=== PATIENT | male | born 1945 | race Caucasian/White ===

== ENCOUNTER 2018-10-06 08:00 | Inpatient (IN) | payer MEDICARE, BC ==
[2018-10-06] MEDS ORDERED: ISOVUE-370 76%-LOCM 1 ML ONE (11:34)
[2018-10-06] MEDS ORDERED: Ondansetron PF 4 MG/2 ML Vial IVP PRN (12:54)
[2018-10-06] MEDS ORDERED: Acetaminophen 650 MG Suppository PR PRN (12:54)
[2018-10-06] MEDS: Piperacillin/Tazobactam 3.375 GM in Sodium Chloride 0.9% 100 ML IVPB SCH ×2 (15:04→23:06)
[2018-10-06] MEDS: Sodium Chloride 0.9% 1,000 ML IV SCH (15:10)
--- NOTE | 2018-10-06 15:51 | CT ---
CT CHEST, ABDOMEN AND PELVIS WITH CONTRAST: 10/06/18 Multiple axial tomograms obtained through the chest, abdomen and pelvis with IV enhancement. INDICATIONS: Sepsis. Correlation to recent CT abdomen and pelvis 09/18/18. CT CHEST: There are chronic lung parenchymal changes with hyperexpansion and early emphysematous change. Hazy g round glass opacities in the posterior lower lobes, more prominent in the right lower lobe is seen. Mild inflammatory infiltrate cannot be excluded. There is no evidence of confluent consolidation. Tho racic aorta shows atherosclerotic change. The pulmonary arteries are opacified and there is no eviden ce of proximal pulmonary embolus. IMPRESSION: Chronic lung changes. Ground glass opacities, more prominent in the posterior right lung base. The fi ndings may represent infectious alveolitis. No confluent consolidation. CT ABDOMEN AND PELVIS: Liver, spleen and pancreas unremarkable. Adrenal glands unremarkable. Kidneys show right renal cystic lesions which are stable from a recent exam. No hydronephrosis. Urina ry bladder is contacted and Mcwilliams catheter in place. Small bowel loops unremarkable. Prominent stool throughout the colon with diverticulosis of the left kidney and sigmoid. No CT evidence of diverticu litis. Aorta shows atherosclerotic calcifications but normal caliber. No mass or adenopathy. No free fluid. IMPRESSION: No acute process identified. POS: OFF
--- NOTE | 2018-10-06 21:26 | HP ---
CHIEF COMPLAINT: Generalized weakness. HISTORY OF PRESENT ILLNESS: The patient is a 73-year-old male, who was sent to the emergency room by EMS by his caregiver/nurse, who came over to see him and he was very weak and not able to do his routine. While in the emergency room in [place], he was found to be septic with tachycardia, fever, and he received two doses of Zosyn and a 5 L of IV fluids and 800 mg of ibuprofen and was sent out to [facility] in [place], where he is getting admitted for further diagnostic workup and management of his condition. PAST MEDICAL HISTORY: Positive for, 1. Parkinson disease. 2. Hyperlipidemia. 3. History of hypokalemia. PAST SURGICAL HISTORY: 1. Hernia repair. 2. Vasectomy. SOCIAL HISTORY: He denied any alcohol intake, cigarette smoking, or illicit drug use. FAMILY HISTORY: Positive for cardiovascular disease. ALLERGIES: NONE. MEDICATIONS: 1. Effexor XR 150 mg once a day. 2. Adderall 20 mg once a day. 3. Verapamil 180 mg once a day. 4. Atorvastatin 40 mg once a day. 5. Tamsulosin 0.4 mg twice a day. 6. Potassium chloride 10 mEq two tablets twice a day. 7. Carbidopa levodopa 50/200 mg one every 8 hours and 25/250 one tablet 3 times a day. 8. Risperidone 4 mg at bedtime. 9. Desmopressin 0.2 mg 3 tablets once a day. 10. Finasteride 5 mg once a day. 11. Melatonin 5 mg 2 tablets at bedtime. 12. MiraLAX 17 g twice a day. 13. Divalproex 250 mg one tablet twice a day. CODE STATUS: The patient is full code. PRIMARY CARE PHYSICIAN: Jeremy Ren MD REVIEW OF SYSTEMS: Unobtainable secondary to the patient's very slow response and very poor communication with us. PHYSICAL EXAMINATION: VITAL SIGNS: Blood pressure is 154/73, pulse is 88, temperature is 98.5, respirations 20, and O2 saturation is 97% on 2 L by nasal cannula. HEENT: His head is atraumatic and normocephalic. He tries to follow my commands, but he falls short very often. His pupils are responding to light properly. Sclerae, nonicteric. Conjunctivae are red. Oral mucosa is somewhat dry. NECK: Supple. LUNGS: Clear. HEART: S1 and S2, normal. No S3. No S4. ABDOMEN: Soft, nontender, and nondistended. EXTREMITIES: No clubbing, cyanosis, or edema. NEUROLOGICAL: He is trying to follow my commands, but he falls short very often. His speech is very slow and sporadic. His upper and lower extremities with significant increase of muscle spasm. SKIN: He has stage II decubitus on his sacrum. LABORATORY DATA: White count is 18.0, hemoglobin 15.0, hematocrit 45.0, platelet count is 249,000, and neutrophils 91%. Chemistry; sodium of 140, potassium 4.1, chloride 105, CO2 of 21, BUN 16, creatinine 0.79, GFR greater than 90, glucose 134. Lactic acid 3.3 and repeated is 2.7. The rest of chemistry within normal limits. Troponin I less than 0.010. BNP 13.4. Chest x-ray did not reveal any acute infiltrates. Electrocardiogram showed sinus tachycardia with ventricular rate of 128 beats per minute with nonspecific ST-T wave abnormalities. IMPRESSION: 1. Most likely sepsis with elevated white count, tachycardia, and fever of unclear etiology at this point. His urine is clear. Chest x-ray does not show any infiltrates. 2. Parkinsonism. 3. Hyperlipidemia. 4. Hematuria per the documentation from [place] [facility]. PLAN: Full admission. Condition is guarded. IV 75 mL of normal saline per hour. Diet modified by speech pathology. He was evaluated this morning and we are going to follow the recommendation with pureed food and I believe thickened liquids. Continue Zosyn 3.375 g every 6 hours IV piggyback. He will have CT of the chest, abdomen, and pelvis with and without contrast. Reconcile his home medications. We will follow up on his cultures, urine, and blood from [place] [facility] for the fever. DVT prophylaxis with SCDs and Lovenox. Job ID: [id number]
[2018-10-06] MEDS: Divalproex Sodium 125 mg Sprinkle Capsule PO SCH (21:44)
[2018-10-06] MEDS: Tamsulosin HCl 0.4 MG CAP PO SCH (21:44)
[2018-10-06] MEDS: Melatonin 3 MG TAB PO SCH (21:44)
[2018-10-06] MEDS: Carbidopa/Levodopa CR 50-200 mg Tablet PO SCH (21:44)
[2018-10-06] MEDS: Carbidopa/Levodopa 25-250 mg Tablet PO SCH (21:45)
[2018-10-06] MEDS: Desmopressin 0.2 mg Tablet PO SCH (21:45)
[2018-10-06] MEDS: Finasteride 5 MG TAB PO SCH (21:47)
[2018-10-06] MEDS: risperiDONE 1 MG TAB PO SCH (21:47)
[2018-10-07] MEDS: Piperacillin/Tazobactam 3.375 GM in Sodium Chloride 0.9% 100 ML IVPB SCH ×3 (05:07→16:20)
[2018-10-07] MEDS: Sodium Chloride 0.9% 1,000 ML IV SCH (05:08)
[2018-10-07 06:39] LABS: #Eosinphils 0.1 thou/uL (0.0-0.7); #Lymphocytes 1.7 thou/uL (1.20-3.40); #Monocytes 0.5 thou/uL (0.11-0.59); #Neutrophils 6.8 thou/uL (1.40-6.50); %Basophils 0.2 % (0.0-1.0); %Lymphocytes 18.1 % (21.0-51.0); %Monocytes 5.6 % (0.0-10.0); %Neutrophils 75.1 % (42.0-75.0); Hemoglobin 12.6 g/dL (14.0-18.0); Mean Corpuscular HGB CONC 33.7 g/dL (32.0-36.0); Mean Corpuscular Hemoglobin 32.2 pg (27.0-31.0); Mean Corpuscular Volume 95.4 fL (78.0-98.0); Mean Platelet Volume 7.4 fL (7.4-10.4); Platelet Count 235 thou/uL (130-400); RBC Distribution Width 11.9 % (11.5-14.5); Red Blood Cell (RBC) Count 3.93 mill/uL (4.70-6.10); White Blood Cell (WBC) Count 9.1 thou/uL (4.8-10.8)
[2018-10-07 07:06] LABS: ALT (SGPT) Less than 7 U/L (8-55); AST (SGOT) 10 U/L (5-34); Albumin 3.5 g/dL (3.4-4.8); Alkaline Phosphatase 94 U/L (40-150); Anion Gap 13 mmol/L (10-20); BUN (Urea Nitrogen) 7 mg/dL (8.4-25.7); Bilirubin, Total 0.7 mg/dL (0.2-1.2); Calc. Creatinine Clearance 117 mL/min (70-130); Calcium 8.9 mg/dL (7.8-10.44); Carbon Dioxide 24 mmol/L (23-31); Chloride 105 mmol/L (98-107); Estimated GFR-MDRD Greater than 90; Globulin 2.6 g/dL (2.4-3.5); Glucose 87 mg/dL (83-110); Potassium 3.1 mmol/L (3.5-5.1); Protein, Total 6.1 g/dL (5.8-8.1); Sodium 139 mmol/L (136-145)
[2018-10-07] MEDS: Divalproex Sodium 125 mg Sprinkle Capsule PO SCH ×2 (08:25→20:37)
[2018-10-07] MEDS: Tamsulosin HCl 0.4 MG CAP PO SCH ×2 (08:26→20:37)
[2018-10-07] MEDS: Carbidopa/Levodopa 25-250 mg Tablet PO SCH ×3 (08:26→20:39)
[2018-10-07] MEDS: Carbidopa/Levodopa CR 50-200 mg Tablet PO SCH ×3 (08:27→20:38)
[2018-10-07] MEDS: Enoxaparin Sodium 40 MG/0.4 ML SYRINGE SC SCH (08:34)
[2018-10-07] MEDS ORDERED: Potassium Chloride 20 MEQ TAB PO SCH (14:45)
--- NOTE | 2018-10-07 17:04 | PDOC.PN ---
- Subjective Encounter Start Date: 10/07/18 Encounter Start Time: 14:20 Mr. Coulter was seen today in follow-up of sepsis- likely from aspiration. He has advanced Parkinson's disease and is unable to express his concerns. He was noted to cough after each bite of food. - Objective Resuscitation Status - Order Detail: 10/06/18 12:54 Resuscitation Status Routine Resuscitation Status: FULL: Full Resuscitation MAR Reviewed: Yes Vital Signs & Weight: Vital Signs (12 hours) Temp Pulse Resp BP Pulse Ox 10/07/18 16:00 97.8 F 99 18 168/81 H 95 10/07/18 11:04 98.5 F 88 16 139/78 95 10/07/18 07:58 98.8 F 97 22 H 138/75 100 Weight Weight 169 lb 12.095 oz I&O: 10/06/18 10/07/18 10/08/18 06:59 06:59 06:59 Intake Total 2400 Output Total 4600 550 Balance -2200 -550 Result Diagrams: 10/07/18 05:54 10/07/18 05:54 Phys Exam - Physical Examination HEENT: PERRLA + rhonchi bilaterally , and some rales at the bases Cardiovascular: RRR, no significant murmur, no rub Gastrointestinal: soft, non-tender, no distention, positive bowel sounds Musculoskeletal: no edema, pulses present Dx/Plan (1) Sepsis Code(s): A41.9 - SEPSIS, UNSPECIFIED ORGANISM Status: Acute (2) Aspiration pneumonia Code(s): J69.0 - PNEUMONITIS DUE TO INHALATION OF FOOD AND VOMIT Status: Acute (3) Parkinsons disease Code(s): G20 - PARKINSON'S DISEASE Status: Chronic - Plan * Sepsis- likely due to aspiration pneumonia ( CT scan results noted). He is currently on a diet with risks. * Continue Zosyn * Parkinson's disease- his condition is advanced and he is at constant risk of aspiration. He is Full Code * Will discuss with the patient's
[2018-10-07] MEDS ORDERED: Polyethylene Glycol 3350 17 GM Packet PO SCH (17:15)
--- NOTE | 2018-10-07 18:28 | PDOC.EVN ---
Event Note - Event Note Event Note: Discussed the patient's condition regarding to his poor swallow with his Zenobia. He was noted to cough after each bite, and his swallow was very delayed. We briefly discussed Pleasure feeds versus, PEG tube placement. We discussed the natural progression of Parkinson's disease, and that this will be a progressive problem with dysphagia going forward. We also discussed code status as well She is currently on vacation, and says this was a lot of information to deal with right now. She would like to give this more thought. In the meantime he will remain a FULL CODE. She is interested in him going to a Swing Bed in [facility]. ACP 30 minutes
[2018-10-07] MEDS: Melatonin 3 MG TAB PO SCH (20:35)
[2018-10-07] MEDS: Finasteride 5 MG TAB PO SCH (20:35)
[2018-10-07] MEDS: risperiDONE 1 MG TAB PO SCH (20:38)
[2018-10-07] MEDS: Desmopressin 0.2 mg Tablet PO SCH (20:39)
[2018-10-08] MEDS: Piperacillin/Tazobactam 3.375 GM in Sodium Chloride 0.9% 100 ML IVPB SCH ×5 (00:04→23:41)
[2018-10-08 05:39] LABS: #Eosinphils 0.1 thou/uL (0.0-0.7); #Lymphocytes 1.2 thou/uL (1.20-3.40); #Monocytes 0.6 thou/uL (0.11-0.59); #Neutrophils 8.3 thou/uL (1.40-6.50); %Basophils 0.4 % (0.0-1.0); %Eosinophils 0.9 % (0.0-10.0); %Lymphocytes 11.3 % (21.0-51.0); %Monocytes 6.2 % (0.0-10.0); %Neutrophils 81.2 % (42.0-75.0); Hemoglobin 14.5 g/dL (14.0-18.0); Mean Corpuscular HGB CONC 33.6 g/dL (32.0-36.0); Mean Corpuscular Hemoglobin 32.5 pg (27.0-31.0); Mean Corpuscular Volume 96.8 fL (78.0-98.0); Mean Platelet Volume 7.2 fL (7.4-10.4); Platelet Count 249 thou/uL (130-400); RBC Distribution Width 11.9 % (11.5-14.5); Red Blood Cell (RBC) Count 4.46 mill/uL (4.70-6.10); White Blood Cell (WBC) Count 10.2 thou/uL (4.8-10.8)
[2018-10-08 05:56] LABS: ALT (SGPT) Less than 7 U/L (8-55); AST (SGOT) 11 U/L (5-34); Alkaline Phosphatase 106 U/L (40-150); Anion Gap 15 mmol/L (10-20); BUN (Urea Nitrogen) 7 mg/dL (8.4-25.7); Bilirubin, Total 0.8 mg/dL (0.2-1.2); Calc. Creatinine Clearance 107 mL/min (70-130); Calcium 9.6 mg/dL (7.8-10.44); Carbon Dioxide 22 mmol/L (23-31); Chloride 104 mmol/L (98-107); Estimated GFR-MDRD Greater than 90; Globulin 3.1 g/dL (2.4-3.5); Glucose 98 mg/dL (83-110); Potassium 3.5 mmol/L (3.5-5.1); Protein, Total 7.1 g/dL (5.8-8.1); Sodium 137 mmol/L (136-145)
[2018-10-08] MEDS: Tamsulosin HCl 0.4 MG CAP PO SCH ×2 (08:41→20:02)
[2018-10-08] MEDS: Divalproex Sodium 125 mg Sprinkle Capsule PO SCH ×2 (08:42→20:13)
[2018-10-08] MEDS: Carbidopa/Levodopa CR 50-200 mg Tablet PO SCH ×3 (08:43→20:02)
[2018-10-08] MEDS: Enoxaparin Sodium 40 MG/0.4 ML SYRINGE SC SCH (08:45)
[2018-10-08] MEDS: Polyethylene Glycol 3350 17 GM Packet PO SCH ×2 (08:46→09:02)
[2018-10-08] MEDS: Carbidopa/Levodopa 25-250 mg Tablet PO SCH ×3 (08:47→20:03)
--- NOTE | 2018-10-08 15:42 | PDOC.PN ---
- Subjective Encounter Start Date: 10/08/18 Encounter Start Time: 15:38 Mr. Coulter was seen today in follow-up of aspiration pneumonia with sepsis. He does not have any new complaints. - Objective Resuscitation Status - Order Detail: 10/06/18 12:54 Resuscitation Status Routine Resuscitation Status: FULL: Full Resuscitation MAR Reviewed: Yes Vital Signs & Weight: Vital Signs (12 hours) Temp Pulse Resp BP Pulse Ox 10/08/18 11:39 98.2 F 88 16 111/71 94 L 10/08/18 08:00 92 L 10/08/18 07:30 98.3 F 94 16 122/70 92 L Weight Weight 169 lb 12.095 oz I&O: 10/07/18 10/08/18 10/09/18 06:59 06:59 06:59 Intake Total 2400 450 Output Total 4600 550 Balance -2200 -100 Result Diagrams: 10/08/18 05:22 10/08/18 05:22 Phys Exam - Physical Examination HEENT: PERRLA + rhonchi and wheezing no rales Cardiovascular: RRR, no significant murmur, no rub Gastrointestinal: soft, non-tender, no distention, positive bowel sounds Musculoskeletal: no edema Neurological: non-focal Dx/Plan (1) Sepsis Code(s): A41.9 - SEPSIS, UNSPECIFIED ORGANISM Status: Acute (2) Aspiration pneumonia Code(s): J69.0 - PNEUMONITIS DUE TO INHALATION OF FOOD AND VOMIT Status: Acute (3) Parkinsons disease Code(s): G20 - PARKINSON'S DISEASE Status: Chronic - Plan * Aspiration pneumonia with sepsis- improving- he is still on a diet with risks. He continues to cough after each few bites * He is at high risk for aspiration * Continue Zosyn * Advanced Parkinson's disease.
[2018-10-08] MEDS: Finasteride 5 MG TAB PO SCH (20:02)
[2018-10-08] MEDS: Melatonin 3 MG TAB PO SCH (20:02)
[2018-10-08] MEDS: Desmopressin 0.2 mg Tablet PO SCH (20:03)
[2018-10-08] MEDS: risperiDONE 1 MG TAB PO SCH (20:04)
[2018-10-09 05:21] LABS: #Lymphocytes 1.1 thou/uL (1.20-3.40); #Monocytes 0.5 thou/uL (0.11-0.59); #Neutrophils 6.8 thou/uL (1.40-6.50); %Basophils 0.2 % (0.0-1.0); %Eosinophils 0.3 % (0.0-10.0); %Monocytes 6.3 % (0.0-10.0); %Neutrophils 80.1 % (42.0-75.0); Hemoglobin 13.8 g/dL (14.0-18.0); Mean Corpuscular HGB CONC 33.2 g/dL (32.0-36.0); Mean Corpuscular Hemoglobin 31.9 pg (27.0-31.0); Mean Corpuscular Volume 96.1 fL (78.0-98.0); Mean Platelet Volume 7.6 fL (7.4-10.4); Platelet Count 273 thou/uL (130-400); RBC Distribution Width 11.8 % (11.5-14.5); Red Blood Cell (RBC) Count 4.31 mill/uL (4.70-6.10); White Blood Cell (WBC) Count 8.5 thou/uL (4.8-10.8)
[2018-10-09] MEDS: Piperacillin/Tazobactam 3.375 GM in Sodium Chloride 0.9% 100 ML IVPB SCH ×4 (05:25→23:40)
[2018-10-09] MEDS: Carbidopa/Levodopa CR 50-200 mg Tablet PO SCH ×3 (10:07→20:11)
[2018-10-09] MEDS: Tamsulosin HCl 0.4 MG CAP PO SCH ×2 (10:07→20:11)
[2018-10-09] MEDS: Enoxaparin Sodium 40 MG/0.4 ML SYRINGE SC SCH (10:07)
[2018-10-09] MEDS: Divalproex Sodium 125 mg Sprinkle Capsule PO SCH ×2 (10:07→20:25)
[2018-10-09] MEDS: Carbidopa/Levodopa 25-250 mg Tablet PO SCH ×3 (10:07→20:09)
[2018-10-09] MEDS: Polyethylene Glycol 3350 17 GM Packet PO SCH (10:08)
--- NOTE | 2018-10-09 14:08 | PDOC.PN ---
- Subjective Encounter Start Date: 10/09/18 Encounter Start Time: 14:06 Mr. Coulter was seen today in follow-up of aspiration pneumonia. He was seen ambulating in the halls. No problems voiced by staff. - Objective Resuscitation Status - Order Detail: 10/06/18 12:54 Resuscitation Status Routine Resuscitation Status: FULL: Full Resuscitation MAR Reviewed: Yes Vital Signs & Weight: Vital Signs (12 hours) Temp Pulse Resp BP Pulse Ox 10/09/18 08:00 94 L 10/09/18 06:56 98.8 F 90 16 159/98 H 94 L Weight Weight 169 lb 12.095 oz I&O: 10/08/18 10/09/18 10/10/18 06:59 06:59 06:59 Intake Total 450 450 Output Total 550 Balance -100 450 Result Diagrams: 10/09/18 04:22 10/08/18 05:22 Phys Exam - Physical Examination HEENT: PERRLA Respiratory: no wheezing, no rales, no rhonchi, clear to auscultation bilateral Cardiovascular: RRR, no significant murmur, no rub Dx/Plan (1) Sepsis Code(s): A41.9 - SEPSIS, UNSPECIFIED ORGANISM Status: Acute (2) Aspiration pneumonia Code(s): J69.0 - PNEUMONITIS DUE TO INHALATION OF FOOD AND VOMIT Status: Acute (3) Parkinsons disease Code(s): G20 - PARKINSON'S DISEASE Status: Chronic - Plan * [place] [facility] [place] * He is still at high risk * Stable for discharge to the swing bed.
[2018-10-09] MEDS: risperiDONE 1 MG TAB PO SCH (20:08)
[2018-10-09] MEDS: Finasteride 5 MG TAB PO SCH (20:08)
[2018-10-09] MEDS: Desmopressin 0.2 mg Tablet PO SCH (20:09)
[2018-10-09] MEDS: Melatonin 3 MG TAB PO SCH (20:10)
[2018-10-10] MEDS: Piperacillin/Tazobactam 3.375 GM in Sodium Chloride 0.9% 100 ML IVPB SCH ×3 (05:29→17:16)
[2018-10-10] MEDS: Divalproex Sodium 125 mg Sprinkle Capsule PO SCH ×2 (08:51→20:08)
[2018-10-10] MEDS: Enoxaparin Sodium 40 MG/0.4 ML SYRINGE SC SCH (08:51)
[2018-10-10] MEDS: Tamsulosin HCl 0.4 MG CAP PO SCH ×2 (08:51→20:04)
[2018-10-10] MEDS: Carbidopa/Levodopa 25-250 mg Tablet PO SCH ×3 (08:52→20:04)
[2018-10-10] MEDS: Carbidopa/Levodopa CR 50-200 mg Tablet PO SCH ×3 (08:52→20:04)
[2018-10-10] MEDS: Polyethylene Glycol 3350 17 GM Packet PO SCH (08:52)
--- NOTE | 2018-10-10 09:23 | PDOC.EVN ---
Event Note - Event Note Event Note: Patient"s discharge was held due to would like to pursue PEG tube placement.
--- NOTE | 2018-10-10 15:39 | PDOC.PN ---
- Subjective Encounter Start Date: 10/10/18 Encounter Start Time: 15:37 Mr. Coulter was seen today in follow-up of dysphagia and aspiration pneumonia. He appears comfortable. No problems have roberto voiced by staff. - Objective Resuscitation Status - Order Detail: 10/06/18 12:54 Resuscitation Status Routine Resuscitation Status: FULL: Full Resuscitation MAR Reviewed: Yes Vital Signs & Weight: Vital Signs (12 hours) Temp Pulse Resp BP Pulse Ox 10/10/18 08:49 159/80 H 10/10/18 08:00 99.4 F 102 H 20 184/81 H 93 L Weight Weight 169 lb 12.095 oz I&O: 10/09/18 10/10/18 10/11/18 06:59 06:59 06:59 Intake Total 450 325 Balance 450 325 Result Diagrams: 10/09/18 04:22 10/08/18 05:22 Phys Exam - Physical Examination HEENT: PERRLA Respiratory: no wheezing, no rales, no rhonchi, clear to auscultation bilateral Cardiovascular: RRR, no significant murmur, no rub Gastrointestinal: soft, non-tender, no distention, positive bowel sounds Musculoskeletal: no edema, pulses present Dx/Plan (1) Sepsis Code(s): A41.9 - SEPSIS, UNSPECIFIED ORGANISM Status: Acute (2) Aspiration pneumonia Code(s): J69.0 - PNEUMONITIS DUE TO INHALATION OF FOOD AND VOMIT Status: Acute (3) Parkinsons disease Code(s): G20 - PARKINSON'S DISEASE Status: Chronic - Plan * Aspiration Pneumonia- continue Zosyn for now, change to Augmentin once the PEG tube is placed * HTN- blood pressure has been elevated, will add Amlodipine, low dose daily * Parkinson's disease- advanced with dementia .
[2018-10-10] MEDS: risperiDONE 1 MG TAB PO SCH (20:04)
[2018-10-10] MEDS: Melatonin 3 MG TAB PO SCH (20:04)
[2018-10-10] MEDS: Finasteride 5 MG TAB PO SCH (20:04)
[2018-10-10] MEDS: Desmopressin 0.2 mg Tablet PO SCH (20:04)
[2018-10-11] MEDS: Piperacillin/Tazobactam 3.375 GM in Sodium Chloride 0.9% 100 ML IVPB SCH ×5 (00:08→23:24)
--- NOTE | 2018-10-11 01:30 | CON ---
DATE OF CONSULTATION: 10/10/2018 REASON FOR CONSULTATION: Aspiration. HISTORY OF PRESENT ILLNESS: Mr. Coulter is a 73-year-old male with Parkinson's and advanced dementia, who was admitted to the hospital 5 days ago with aspiration pneumonia. Earlier this year, he did have a modified barium swallow that showed penetration and aspiration of thin liquids. Currently, he is essentially noncommunicative. History is mostly obtained from his [id number] who is present at the bedside. During this hospitalization, he appears to be comfortable. There is no indication of nausea, vomiting, or any abdominal pain. Antecedent GI history is not known. PAST MEDICAL HISTORY: 1. Hypertension. 2. Hyperlipidemia. 3. Parkinson disease. 4. Dementia. 5. Vasectomy. SOCIAL HISTORY: The patient is . Lives with his . His is currently over in [place]. He is a former smoker according to the chart. No alcohol usage. FAMILY HISTORY: Negative for any GI problem, liver disease, or GI malignancy per family member. REVIEW OF SYSTEMS: Not obtainable. MEDICATIONS: Include; 1. MiraLAX. 2. Melatonin. 3. Finasteride. 4. Risperidone. 5. Verapamil. 6. Venlafaxine. 7. Tamsulosin. 8. Desmopressin. 9. Sinemet. 10. Adderall. 11. Atorvastatin. 12. Zosyn. ALLERGIES: NONE. PHYSICAL EXAMINATION: VITAL SIGNS: Temperature is 99.4, blood pressure 184/81, and pulse of 102. GENERAL: He is alert, but noncommunicative. HEENT: Shows anicteric sclerae. Oropharynx is clear. Tongue moist. Poor dentition. NECK: Supple. CV: Shows normal S1, S2. Regular rate and rhythm. CHEST: Shows breath sounds, poor excursion. ABDOMEN: Soft. No distention. No tympany. No palpable hepatosplenomegaly. He has active bowel sounds. No visible scar. EXTREMITIES: Shows no edema. LABORATORY DATA: WBCs 8.5, hemoglobin 13.8, and platelet count of 273. Electrolytes within normal range. Creatinine 0.68. LFTs are normal. ASSESSMENT: 1. Oropharyngeal dysphagia with evidence of penetration and aspiration on modified barium swallow. The patient now is being treated for aspiration pneumonitis. 2. Advanced Parkinson's with dementia. 3. The patient is an appropriate candidate for gastrostomy tube feeding. I did discuss with his who is currently over in [place] and review indication and limitation of the PEGs including risk of EGD with G-tube placement, not limited to bleeding, trauma to other organs, and infection. All questions answered. She wants to proceed. RECOMMENDATIONS: We will proceed with the EGD, PEG tomorrow as discussed above. Job ID: [id number]
[2018-10-11] MEDS: Carbidopa/Levodopa CR 50-200 mg Tablet PO SCH ×3 (09:49→19:13)
[2018-10-11] MEDS: Enoxaparin Sodium 40 MG/0.4 ML SYRINGE SC SCH (09:49)
[2018-10-11] MEDS: Divalproex Sodium 125 mg Sprinkle Capsule PO SCH ×2 (09:49→19:17)
[2018-10-11] MEDS: Carbidopa/Levodopa 25-250 mg Tablet PO SCH ×3 (09:49→19:11)
[2018-10-11] MEDS: Polyethylene Glycol 3350 17 GM Packet PO SCH (09:49)
[2018-10-11] MEDS: Tamsulosin HCl 0.4 MG CAP PO SCH ×2 (09:50→19:14)
[2018-10-11] MEDS ORDERED: Promethazine HCl 25 MG/ML VIAL SLOW IVP PRN (11:15)
[2018-10-11] MEDS ORDERED: Ondansetron HCl/PF 4 MG/2 ML Vial IVP PRN (11:15)
[2018-10-11] MEDS ORDERED: Promethazine HCl 25 MG/ML VIAL IM PRN (11:15)
--- NOTE | 2018-10-11 12:05 | OP ---
DATE OF PROCEDURE: 10/11/2018 PROCEDURE PERFORMED: Esophagogastroduodenoscopy with percutaneous gastrostomy tube placement. INDICATION FOR PROCEDURE: Oropharyngeal dysphagia, dementia, recent history of aspiration pneumonia. DESCRIPTION OF PROCEDURE: After the risks and benefits of the procedure were explained to the patient's surrogate () including risks of bleeding, infection, perforation, reactions to anesthesia, aspiration, and/or pain, informed consent was obtained. The patient was then taken to the endoscopy suite, where deep sedation was administered via propofol and anesthesia support. Once adequate sedation was achieved, the standard gastroscope was introduced into the mouth with intubation of the esophagus, stomach, and the proximal small intestines with the findings listed below. Upon completion of the EGD portion of the examination using both one-to-one compression and transillumination, the percutaneous gastrostomy tube site was ascertained. The percutaneous gastrostomy tube was then placed via the push method with the procedure outlined below. The patient tolerated the procedure well with no immediate perioperative complications. The amount of blood loss was minimal. Upon completion of the procedure, all equipment was removed from the patient, and he was transferred to PACU in satisfactory condition. An abdominal binder was placed on the patient to prevent inadvertent removal of the PEG tube. Posterior oropharynx: A [id number] amount of food was seen in the posterior oropharynx immediately superior to the epiglottis, but was easily removed with suctioning. Esophagus: Normal-appearing mucosa was seen in the proximal, mid, and distal esophagus. The diaphragmatic pinch was seen at approximately 47 cm past the incisors while the GE junction was well seen at 45 cm past the incisors indicating a 2 cm hiatal hernia. A small linear erosion at the GE junction with minimal oozing of blood was also seen indicative of LA grade reflux-mediated esophagitis. Otherwise, there was no evidence of ulcerations, or mass lesions. Stomach: Normal-appearing mucosa was seen in the gastric cardia, fundus, body, greater curvature, antrum, and incisura. There was no evidence of erosions, ulcerations, mass, lesions, or active/recent bleeding. Upon completion of the evaluation of the stomach using one-to-one compression and transillumination, the site for the percutaneous gastrostomy tube site was ascertained. Using an installation needle, approximately 1% lidocaine was instilled in a wheal formation on the skin with the needle then directed perpendicular to the skin and advanced into the stomach with back pressure as it was advanced. Upon entry into the stomach, lidocaine was instilled along the tract to achieve local anesthesia. Upon adequate local anesthesia, a 1 cm vertical incision was made with a scalpel with minimal blood loss at this portion of the procedure. Then, using an aspiration needle, he was then advanced through the incision along the the anesthetized tract and into the stomach. Once in the stomach, the needle was then removed and a guidewire was advanced through the catheter and obtained on the other side via the gastroscope and a snare that was advanced through the scope itself. The guidewire was then retracted through the esophagus and the mouth, where the integrity of the guidewire was maintained at all times. A 20-Ch[place] [employer] percutaneous gastrostomy tube was then affixed to the guidewire, and using a push technique, was advanced through the esophagus into the stomach and out through the anterior abdomen with 3.5 cm showing at the skin. An external bumper was then affixed to the percutaneous gastrostomy tube itself with a layer of bacitracin applied to the surgical wound on the outside. A dressing that was then placed over the gastrostomy tube as it was cut to length. An abdominal binder was also placed to protect the tube from inadvertent removal. Duodenum: Normal-appearing mucosa was seen in both the duodenal bulb and the second portion of the duodenum. There was no evidence of the erosions, ulcerations, mass, lesions, or active/recent bleeding. IMPRESSION: 1. LA grade A reflux-mediated erosive esophagitis. 2. Successful placement of a [employer] 20-Ch[place] percutaneous gastrostomy tube. RECOMMENDATIONS: 1. Would monitor the patient in the postoperative period for any signs of complications. 2. Would withhold on installation of any tube feeds for the next 6 hours for evaluation of any potential complications, but then can be used after that. 3. Recommend dietary consult for recommendations regarding tube feeds. 4. Would adhere to standard PEG tube precautions. 5. Would refrain from placing any objects including dressings between the external bumper and the skin to prevent an additional traction on the internal bumper. 6. If the PEG tube is intermittently removed within the next 4 to 6 weeks, this could be considered a surgical emergency and I would recommend a urgent surgical evaluation at that time (if it occurs). We will continue to follow. Please call with any questions. Job ID: [id number]
[2018-10-11 12:27] VITALS: BMI 23.0
[2018-10-11] MEDS ORDERED: PROPOFOL 200 MG/20 ML VIAL ONE (14:29)
[2018-10-11] MEDS: Acetaminophen 325 MG TAB PO PRN ×2 (17:03→19:31)
[2018-10-11] MEDS: Desmopressin 0.2 mg Tablet PO SCH (19:11)
[2018-10-11] MEDS: risperiDONE 1 MG TAB PO SCH (19:11)
[2018-10-11] MEDS: Finasteride 5 MG TAB PO SCH (19:13)
[2018-10-11] MEDS: Melatonin 3 MG TAB PO SCH (19:13)
[2018-10-12] MEDS: Piperacillin/Tazobactam 3.375 GM in Sodium Chloride 0.9% 100 ML IVPB SCH ×3 (04:41→17:26)
[2018-10-12] MEDS: Polyethylene Glycol 3350 17 GM Packet PO SCH (07:51)
[2018-10-12] MEDS: Carbidopa/Levodopa 25-250 mg Tablet PO SCH ×3 (07:51→21:08)
[2018-10-12] MEDS: Enoxaparin Sodium 40 MG/0.4 ML SYRINGE SC SCH (07:51)
[2018-10-12] MEDS: Tamsulosin HCl 0.4 MG CAP PO SCH ×2 (07:51→21:08)
--- NOTE | 2018-10-12 08:02 | RAD ---
PORTABLE CHEST 1 VIEW: DATE: 10/11/2018. TIME: 4:45 a.m. HISTORY: Low oxygen saturations. FINDINGS: Comparison is made with the exam of 10/05/2018. There is continued elevation of the right hemidiaphragm. Mild patchy infiltrates are seen in the roman g bases. No pneumothoraces or pleural effusions are seen. There is evidence of old granulomatous di sease. The possibility of pneumonia should be considered. POS: OFF
[2018-10-12 08:32] LABS: Hemoglobin 13.8 g/dL (14.0-18.0); Mean Corpuscular HGB CONC 32.5 g/dL (32.0-36.0); Mean Corpuscular Hemoglobin 31.7 pg (27.0-31.0); Mean Corpuscular Volume 97.5 fL (78.0-98.0); Mean Platelet Volume 7.1 fL (7.4-10.4); Platelet Count 275 thou/uL (130-400); RBC Distribution Width 11.9 % (11.5-14.5); Red Blood Cell (RBC) Count 4.35 mill/uL (4.70-6.10); White Blood Cell (WBC) Count 13.6 thou/uL (4.8-10.8)
[2018-10-12 09:24] LABS: ALT (SGPT) 11 U/L (8-55); AST (SGOT) 16 U/L (5-34); Albumin 3.7 g/dL (3.4-4.8); Alkaline Phosphatase 89 U/L (40-150); Anion Gap 17 mmol/L (10-20); BUN (Urea Nitrogen) 18 mg/dL (8.4-25.7); Bilirubin, Total 1.1 mg/dL (0.2-1.2); Calc. Creatinine Clearance 100 mL/min (70-130); Calcium 9.3 mg/dL (7.8-10.44); Carbon Dioxide 24 mmol/L (23-31); Chloride 102 mmol/L (98-107); Estimated GFR-MDRD Greater than 90; Globulin 3.3 g/dL (2.4-3.5); Glucose 100 mg/dL (83-110); Potassium 3.6 mmol/L (3.5-5.1); Sodium 139 mmol/L (136-145)
[2018-10-12 09:44] LABS: Band 24 % (5-11); Lymphocytes 3 % (21-51); MDiff Complete? YES; Monocytes 3 % (0-10); Neutrophil 70 % (42-75); Platelet Morphology Comment Appears Adequate; Polychromasia SLIGHT = 2-3 cells (100X) (0-2/hpf)
[2018-10-12] MEDS: Divalproex Sodium 125 mg Sprinkle Capsule PO SCH ×2 (10:02→21:08)
[2018-10-12] MEDS: Carbidopa/Levodopa CR 50-200 mg Tablet PO SCH ×3 (10:03→21:08)
--- NOTE | 2018-10-12 15:39 | PDOC.PN ---
- Subjective Encounter Start Date: 10/12/18 (f/u sepsis) Encounter Start Time: 15:37 Subjective: Pt noted to be hypoxic overnight, and changed to face mask. Also has -: been tachycardic. PEG tube placed yesterday, with tube feeds initiated -: late this morning. Was NPO essentially without IVF. More lethargic today - Objective Resuscitation Status - Order Detail: 10/06/18 12:54 Resuscitation Status Routine Resuscitation Status: FULL: Full Resuscitation Vital Signs & Weight: Vital Signs (12 hours) Temp Pulse Pulse Pulse Resp BP BP 10/12/18 11:09 122 H 126 H 156/75 H 137/73 10/12/18 10:32 10/12/18 10:31 119 H 24 H 10/12/18 08:00 99.6 F 115 H 26 H 10/12/18 06:43 10/12/18 06:37 114 H 24 H 10/12/18 06:08 110 H 10/12/18 05:08 108 H 20 10/12/18 05:01 117 H 22 H 10/12/18 04:00 97.6 F 108 H 22 H BP Pulse Ox Pulse Ox Pulse Ox 10/12/18 11:09 95 97 10/12/18 10:32 95 10/12/18 10:31 10/12/18 08:00 166/74 H 98 10/12/18 06:43 96 10/12/18 06:37 10/12/18 06:08 97 10/12/18 05:08 96 10/12/18 05:01 94 L 10/12/18 04:00 92 L Weight Admit Weight 169 lb 12.095 oz Weight 169 lb 12.095 oz Result Diagrams: 10/12/18 08:25 10/12/18 08:25 Phys Exam - Physical Examination Constitutional: NAD pt not responsive to voice, will attempt to open his eyes to touch Respiratory: no wheezing, no rales, no rhonchi Cardiovascular: RRR, no significant murmur Gastrointestinal: soft, non-tender, no distention, positive bowel sounds Musculoskeletal: no edema Deviation from normal: Not responding to voice. Will tug on things near his hands Dx/Plan (1) Aspiration pneumonia Code(s): J69.0 - PNEUMONITIS DUE TO INHALATION OF FOOD AND VOMIT Status: Acute (2) Sepsis Code(s): A41.9 - SEPSIS, UNSPECIFIED ORGANISM Status: Acute (3) Parkinsons disease Code(s): G20 - PARKINSON'S DISEASE Status: Chronic - Plan * Uncertain etiology for change in mentation - if secondary to procedure yesterday (PEG tube) vs NPO without IVF vs other. CXR shows known pneumonia for which pt is on zosyn * bolus 1 L over 4 hours, then start low rate ivf * monitor for fever or other changes * continue usual home meds * * reviewed labs today - wbc count mildly elevated c/w procedure yesterday * * reviewed meds and pt is normally on medication for mood, verapamil and adderall - will need to discuss with initiating these medications. She is not presently here. * * dvt prophy -scd's * gi prophy - famotidine * code status full * * pt remains at high risk in current condition.
[2018-10-12] MEDS ORDERED: Sodium Chloride 0.9% 1,000 ML IV SCH (15:45)
[2018-10-12] MEDS: Sodium Chloride 0.9% 1,000 ML IV SCH (16:16)
[2018-10-12] MEDS: Acetaminophen 325 MG TAB PO PRN (16:27)
--- NOTE | 2018-10-12 17:57 | PDOC.EVN ---
Event Note - Event Note Event Note: called by RN and pt with temp to 102 - will order CXR, UA, blood and urine cultures. Will also change from zosyn - pt has received 7 days, to Vanc and Cefepime and monitor. May need ID consultation.
--- NOTE | 2018-10-12 18:08 | PRG ---
DATE OF SERVICE: 10/12/2018 SUBJECTIVE: The patient is very lethargic today. He is not very arousable. Tube feeding started yesterday. He is tolerating at 25 mL an hour. PHYSICAL EXAMINATION: VITAL SIGNS: Temperature is 99.6, blood pressure 156/75, pulse of 126. GENERAL: He is a bit lethargic. HEENT: Shows anicteric sclerae. Oropharynx is dry. CV: Shows normal S1, S2. Regular rate and rhythm. CHEST: Shows breath sounds poor excursion. Difficult to auscultate. ABDOMEN: Flat. PEG site inspected, appears normal without any drainage or induration. Bumper is slightly loose and was tightened up a bit. No illicit tenderness. EXTREMITIES: Shows no edema. LABORATORY DATA: WBCs 13.6, hemoglobin 13.8, and platelet count of 275. Electrolytes within normal range. Creatinine 0.73. Electrolytes are normal. ASSESSMENT: 1. Status post EGD PEG placement yesterday without complication. The PEG site appears normal and he is tolerating low rate tube feeding. 2. Increased lethargy. 3. Aspiration pneumonia. RECOMMENDATION: 1. Continues low rate tube feeding. 2. The patient is currently on Zosyn for his pneumonia, should cover any intra abdominal process.. 3. Dr. Huang is on-call for GI this weekend, please call if GI service is needed. Job ID: [id number] MTDD
--- NOTE | 2018-10-12 18:12 | RAD ---
Portable frontal chest radiograph: 10/12/2018 COMPARISON: 10/12/2018 HISTORY: Low oxygen saturation, fever FINDINGS: Mild linear density in the medial left lung base noted. This could represent mild infectiou s pneumonitis or volume loss. There is no pneumothorax. No pleural fluid, focal consolidation, or alveolar edema. Heart and mediastinal contours are stable as are the osseous structures. IMPRESSION: Mild increased density in the medial left lung base as described above.
[2018-10-12 18:42] LABS: Bilirubin Moderate (Negative); Blood, Urine Negative (Negative); Clarity CLEAR (Clear); Glucose, Urine (Dipstick) Negative (Negative); Leukocyte Negative (Negative); Nitrite Negative (Negative); Protein, Urine (Dipstick) 100 mg/dL (Neg-Trace); Specific Gravity, Urine 1.037 (1.002-1.036)
[2018-10-12 18:44] LABS: Bacteria/HPF None Seen HPF (None Seen); Hyaline Casts/LPF 0-3 HYALINE CAST LPF (0-3 Hyaline); Pathc Cast-AUWi Flag 0.13 (0-2.49); Squamous Epithelial 0-3 HPF (0-3); WBC/HPF 0-3 HPF (0-3)
[2018-10-12] MEDS: Cefepime 2 GM in Sodium Chloride 0.9% 100 ML IVPB SCH (20:33)
[2018-10-12] MEDS: Desmopressin 0.2 mg Tablet PO SCH (21:07)
[2018-10-12] MEDS: risperiDONE 1 MG TAB PO SCH (21:07)
--- NOTE | 2018-10-12 21:07 | PDOC.PN ---
- Subjective Encounter Start Date: 10/11/18 Encounter Start Time: 13:00 Please note this is a LATE ENTRY. Mr. Coulter was seen today in follow-up of dysphagia and aspiration pneumonia. He is post PEG tube placement. He appears comfortable. - Objective Resuscitation Status - Order Detail: 10/06/18 12:54 Resuscitation Status Routine Resuscitation Status: FULL: Full Resuscitation MAR Reviewed: Yes Vital Signs & Weight: Vital Signs (12 hours) Temp Pulse Pulse Pulse Resp BP BP 10/12/18 19:14 100.0 F H 105 H 16 10/12/18 18:22 102 H 24 H 10/12/18 11:09 122 H 126 H 156/75 H 137/73 10/12/18 10:32 10/12/18 10:31 119 H 24 H BP Pulse Ox Pulse Ox Pulse Ox 10/12/18 19:14 118/60 16 L 10/12/18 18:22 10/12/18 11:09 95 97 10/12/18 10:32 95 10/12/18 10:31 Weight Admit Weight 169 lb 12.095 oz Weight 169 lb 12.095 oz I&O: 10/11/18 10/12/18 10/13/18 06:59 06:59 06:59 Output Total 300 Balance -300 Result Diagrams: 10/12/18 08:25 10/12/18 08:25 Phys Exam - Physical Examination HEENT: PERRLA Respiratory: no rales, no rhonchi, wheezing present + occasional wheeze and rhonchi Cardiovascular: RRR, no significant murmur, no rub Gastrointestinal: soft, non-tender, no distention, positive bowel sounds Musculoskeletal: no edema, pulses present Dx/Plan (1) Sepsis Code(s): A41.9 - SEPSIS, UNSPECIFIED ORGANISM Status: Acute (2) Aspiration pneumonia Code(s): J69.0 - PNEUMONITIS DUE TO INHALATION OF FOOD AND VOMIT Status: Acute (3) Parkinsons disease Code(s): G20 - PARKINSON'S DISEASE Status: Chronic - Plan * Sepsis due to aspiration pneumonia- continue IV antibiotics * HTN- blood pressure is stable * Advanced Parkinson's disease- stable. * Awaiting shelter placement
[2018-10-12] MEDS: Melatonin 3 MG TAB PO SCH (21:08)
[2018-10-12] MEDS: Vancomycin HCl 1.25 GM in Sodium Chloride 0.9% 250 ML 250 ML IVPB SCH (21:08)
[2018-10-12] MEDS: Finasteride 5 MG TAB PO SCH (21:08)
[2018-10-13] MEDS: Acetaminophen 325 MG TAB PO PRN ×3 (04:33→22:09)
[2018-10-13] MEDS: Sodium Chloride 0.9% 1,000 ML IV SCH ×2 (05:10→10:16)
[2018-10-13 06:39] LABS: #Lymphocytes 0.7 thou/uL (1.20-3.40); #Monocytes 0.4 thou/uL (0.11-0.59); #Neutrophils 10.5 thou/uL (1.40-6.50); %Basophils 0.1 % (0.0-1.0); %Eosinophils 0.2 % (0.0-10.0); %Lymphocytes 6.3 % (21.0-51.0); %Monocytes 3.7 % (0.0-10.0); %Neutrophils 89.8 % (42.0-75.0); Mean Corpuscular HGB CONC 33.3 g/dL (32.0-36.0); Mean Corpuscular Hemoglobin 33.1 pg (27.0-31.0); Mean Corpuscular Volume 99.6 fL (78.0-98.0); Mean Platelet Volume 7.6 fL (7.4-10.4); Platelet Count 237 thou/uL (130-400); RBC Distribution Width 12.2 % (11.5-14.5); Red Blood Cell (RBC) Count 3.64 mill/uL (4.70-6.10); White Blood Cell (WBC) Count 11.7 thou/uL (4.8-10.8)
[2018-10-13 07:01] LABS: Anion Gap 10 mmol/L (10-20); BUN (Urea Nitrogen) 17 mg/dL (8.4-25.7); Calc. Creatinine Clearance 123 mL/min (70-130); Calcium 8.7 mg/dL (7.8-10.44); Carbon Dioxide 25 mmol/L (23-31); Chloride 108 mmol/L (98-107); Estimated GFR-MDRD Greater than 90; Glucose 150 mg/dL (83-110); Potassium 3.4 mmol/L (3.5-5.1); Sodium 140 mmol/L (136-145)
[2018-10-13] MEDS: Cefepime 2 GM in Sodium Chloride 0.9% 100 ML IVPB SCH ×2 (07:59→21:54)
[2018-10-13] MEDS: Divalproex Sodium 125 mg Sprinkle Capsule PO SCH ×2 (08:03→22:08)
[2018-10-13] MEDS: Polyethylene Glycol 3350 17 GM Packet PO SCH (08:03)
[2018-10-13] MEDS: Carbidopa/Levodopa 25-250 mg Tablet PO SCH ×3 (08:03→22:08)
[2018-10-13] MEDS: Carbidopa/Levodopa CR 50-200 mg Tablet PO SCH ×3 (08:03→22:08)
[2018-10-13] MEDS: Enoxaparin Sodium 40 MG/0.4 ML SYRINGE SC SCH (08:04)
[2018-10-13] MEDS: Tamsulosin HCl 0.4 MG CAP PO SCH ×2 (08:04→22:08)
[2018-10-13] MEDS: Vancomycin HCl 1.25 GM in Sodium Chloride 0.9% 250 ML 250 ML IVPB SCH ×2 (08:47→21:54)
--- NOTE | 2018-10-13 10:00 | PDOC.PN ---
- Subjective Encounter Start Date: 10/13/18 (f/u pneumonia) Encounter Start Time: 09:58 Subjective: No overnight events, pt remains non-verbal - Objective Resuscitation Status - Order Detail: 10/06/18 12:54 Resuscitation Status Routine Resuscitation Status: FULL: Full Resuscitation Vital Signs & Weight: Vital Signs (12 hours) Temp Pulse Resp BP BP Pulse Ox 10/13/18 07:21 97 20 93 L 10/13/18 07:01 99.5 F 97 16 125/61 93 L 10/13/18 02:45 93 L 10/13/18 00:00 97.5 F L 103 H 20 134/67 98 Weight Admit Weight 169 lb 12.095 oz Weight 169 lb 12.095 oz I&O: 10/12/18 10/13/18 10/14/18 06:59 06:59 06:59 Intake Total 405 Output Total 300 Balance 105 Result Diagrams: 10/13/18 06:04 10/13/18 06:04 Phys Exam - Physical Examination Constitutional: NAD Respiratory: no wheezing, no rales, no rhonchi Cardiovascular: RRR, no significant murmur Gastrointestinal: soft, non-tender, no distention, positive bowel sounds Musculoskeletal: no edema Deviation from normal: mild erythema coccyx - no skin breakdown Dx/Plan (1) Aspiration pneumonia Code(s): J69.0 - PNEUMONITIS DUE TO INHALATION OF FOOD AND VOMIT Status: Acute Qualifiers: Laterality: left (2) Sepsis Code(s): A41.9 - SEPSIS, UNSPECIFIED ORGANISM Status: Acute Qualifiers: Sepsis type: sepsis due to unspecified organism Qualified Code(s): A41.9 - Sepsis, unspecified organism (3) Parkinsons disease Code(s): G20 - PARKINSON'S DISEASE Status: Chronic (4) Hypokalemia Code(s): E87.6 - HYPOKALEMIA Status: Acute (5) Fever Code(s): R50.9 - FEVER, UNSPECIFIED Status: Acute (6) Anemia Code(s): D64.9 - ANEMIA, UNSPECIFIED Status: Acute Qualifiers: Anemia type: unspecified type Qualified Code(s): D64.9 - Anemia, unspecified - Plan * Pt with fever yesterday - may be continuing to aspirate - CXR shows changes in the left lung. Abx changed from zosyn to cefepime yesterday and Vanc added. Will continue this combo - if continuing to fever or wbc increasing, or ay other changes, will double cover with levaquin * * mental status not at baseline/encephalopathy whihc may be prolonged effects of anesthesia in a pt with low cognitive reserves vs infection vs other. Will resume home effexor. Hold on adderall for now. * * replace potassium * * continue current meds- add back pt's home effexor. Hold on adderall for now, and no indication for verapamil as current bp and pulse normal * * monitor hb - may be dilutional today as started on IVF yesterday - will lower rate today, and monitor UOP * * bladder scan if no voids and i/o cath if >200 ml to avoid urinary retention * * dvt prophy - scds * gi prophy - famotidine * code status full * * called [id number] and updated by phone with status and concerns about mental status.
[2018-10-13] MEDS: risperiDONE 1 MG TAB PO SCH (22:06)
[2018-10-13] MEDS: Finasteride 5 MG TAB PO SCH (22:07)
[2018-10-13] MEDS: Melatonin 3 MG TAB PO SCH (22:07)
[2018-10-13] MEDS: Desmopressin 0.2 mg Tablet PO SCH (22:08)
[2018-10-14 06:27] LABS: #Eosinphils 0.1 thou/uL (0.0-0.7); #Lymphocytes 0.8 thou/uL (1.20-3.40); #Monocytes 0.5 thou/uL (0.11-0.59); %Basophils 0.3 % (0.0-1.0); %Eosinophils 0.9 % (0.0-10.0); %Lymphocytes 7.2 % (21.0-51.0); %Monocytes 4.2 % (0.0-10.0); %Neutrophils 87.4 % (42.0-75.0); Hemoglobin 11.8 g/dL (14.0-18.0); Mean Corpuscular HGB CONC 32.8 g/dL (32.0-36.0); Mean Corpuscular Hemoglobin 32.7 pg (27.0-31.0); Mean Corpuscular Volume 99.8 fL (78.0-98.0); Mean Platelet Volume 7.8 fL (7.4-10.4); Platelet Count 248 thou/uL (130-400); RBC Distribution Width 12.1 % (11.5-14.5); Red Blood Cell (RBC) Count 3.62 mill/uL (4.70-6.10); White Blood Cell (WBC) Count 11.4 thou/uL (4.8-10.8)
[2018-10-14 06:46] LABS: Anion Gap 12 mmol/L (10-20); BUN (Urea Nitrogen) 12 mg/dL (8.4-25.7); Calc. Creatinine Clearance 158 mL/min (70-130); Calcium 8.7 mg/dL (7.8-10.44); Carbon Dioxide 26 mmol/L (23-31); Chloride 107 mmol/L (98-107); Estimated GFR-MDRD Greater than 90; Glucose 123 mg/dL (83-110); Potassium 3.4 mmol/L (3.5-5.1); Sodium 142 mmol/L (136-145)
[2018-10-14] MEDS: Cefepime 2 GM in Sodium Chloride 0.9% 100 ML IVPB SCH ×2 (08:15→20:49)
[2018-10-14 08:58] LABS: Vancomycin, Trough 8.7 ug/mL
[2018-10-14] MEDS: Atorvastatin Calcium 40 MG TAB PO SCH (09:12)
[2018-10-14] MEDS: Venlafaxine HCl XR 150 MG CAP PO SCH (09:12)
[2018-10-14] MEDS: Carbidopa/Levodopa CR 50-200 mg Tablet PO SCH ×3 (09:12→20:51)
[2018-10-14] MEDS: Tamsulosin HCl 0.4 MG CAP PO SCH ×2 (09:12→20:55)
[2018-10-14] MEDS: Carbidopa/Levodopa 25-250 mg Tablet PO SCH ×3 (09:13→20:55)
[2018-10-14] MEDS: Polyethylene Glycol 3350 17 GM Packet PO SCH (09:14)
[2018-10-14] MEDS: Enoxaparin Sodium 40 MG/0.4 ML SYRINGE SC SCH (09:14)
[2018-10-14] MEDS ORDERED: Vancomycin HCl 1.25 GM in Sodium Chloride 0.9% 250 ML 250 ML IVPB SCH (10:00)
[2018-10-14] MEDS: Vancomycin HCl 1.25 GM in Sodium Chloride 0.9% 250 ML 250 ML IVPB SCH (10:47)
[2018-10-14] MEDS: Divalproex Sodium 125 mg Sprinkle Capsule PO SCH ×2 (10:59→20:51)
[2018-10-14] MEDS: Sodium Chloride 0.9% 1,000 ML IV SCH (11:00)
--- NOTE | 2018-10-14 11:44 | CON ---
DATE OF CONSULTATION: 10/14/2018 CONSULTING PHYSICIAN: Hospitalist Service. HISTORY OF PRESENT ILLNESS: Mr. Coulter is a known patient of mine with progressive Parkinson's-related dementia. He has had a fairly rapid of physical and cognitive decline over the last year. He is having more difficulty with hallucinations and mental status decline. We have made efforts with multiple medications in an attempt to assist in his care has been quite difficult and apparently subsequently was brought in due to an aspiration pneumonia. He is a bit lethargic this morning according to the nurse, but at this point, he will awaken, nod his head to questions and follow simple commands. Reviewed his lab and does not appear to be any electrolyte abnormalities. I would not make any changes in his Parkinson's medication. It seems to be doing about as well as could be expected considering the circumstances. Job ID: [id number]
[2018-10-14] MEDS ORDERED: Sodium Bicarbonate Tab 325 MG TAB PER TUBE PRN (14:17)
[2018-10-14] MEDS ORDERED: Pancrelipase DR 12000 1 CAP FS PRN (14:17)
--- NOTE | 2018-10-14 15:27 | PDOC.PN ---
- Subjective Encounter Start Date: 10/14/18 (f/u encephalopathy) Encounter Start Time: 15:25 Subjective: No overnight events, no further fevers, pt not responding this morning. - Objective Resuscitation Status - Order Detail: 10/06/18 12:54 Resuscitation Status Routine Resuscitation Status: FULL: Full Resuscitation Vital Signs & Weight: Vital Signs (12 hours) Temp Pulse Resp BP Pulse Ox 10/14/18 14:53 98 10/14/18 14:36 96 16 10/14/18 11:43 99.2 F 95 20 107/67 100 10/14/18 11:22 97 20 10/14/18 08:49 98.6 F 98 20 132/68 95 10/14/18 08:15 95 10/14/18 07:30 92 16 94 L 10/14/18 03:42 98.9 F Weight Admit Weight 169 lb 12.095 oz Weight 169 lb 12.095 oz I&O: 10/13/18 10/14/18 10/15/18 06:59 06:59 06:59 Intake Total 405 3190 670 Output Total 300 241 Balance 105 2949 670 Result Diagrams: 10/14/18 05:42 10/14/18 05:42 Phys Exam - Physical Examination Constitutional: NAD weakly will grasp with left hand today - decrease from yesterday when he did with both ands Respiratory: no wheezing, no rales, no rhonchi, clear to auscultation bilateral Cardiovascular: RRR, no significant murmur Gastrointestinal: soft, non-tender, no distention, positive bowel sounds no erythema around peg tube no spontaneous movement - grasps hand to light touch Deviation from normal: unable to assess Deviation from normal: sacral stage 2 - no skin breakdown Dx/Plan (1) Aspiration pneumonia Code(s): J69.0 - PNEUMONITIS DUE TO INHALATION OF FOOD AND VOMIT Status: Acute Qualifiers: Laterality: left (2) Sepsis Code(s): A41.9 - SEPSIS, UNSPECIFIED ORGANISM Status: Acute Qualifiers: Sepsis type: sepsis due to unspecified organism Qualified Code(s): A41.9 - Sepsis, unspecified organism (3) Parkinsons disease Code(s): G20 - PARKINSON'S DISEASE Status: Chronic (4) Hypokalemia Code(s): E87.6 - HYPOKALEMIA Status: Acute (5) Fever Code(s): R50.9 - FEVER, UNSPECIFIED Status: Acute (6) Anemia Code(s): D64.9 - ANEMIA, UNSPECIFIED Status: Acute Qualifiers: Anemia type: unspecified type Qualified Code(s): D64.9 - Anemia, unspecified - Plan * Last fever 2 days ago - currently on Cefepime and Vanc - blood and urine cultures are negative. Likely pt was continuing to aspirate. Will d/c the Vancomycin and anticipate that abx can be de-escalated. * * mental status worsening today - Neurology consult - appreciate Dr. Jiménez seeing the patient and providing background on the advanced disease and continued decline. No change to meds - continue the effexor, hold the adderall. * * hypokalemia - will add scheduled daily potassium. mag level checked and normal. * * continue to hold verapamil - normotensive * * d/c IVF * * continue bladder scan if no voids and i/o cath if >200 ml to avoid urinary retention * * dvt prophy - scds and has been on lovenox * gi prophy - famotidine * code status full * * will consult Palliative care for additional support and discussions of goals of care with family. [id number] updated yesterday
[2018-10-14] MEDS: risperiDONE 1 MG TAB PO SCH (20:50)
[2018-10-14] MEDS: Desmopressin 0.2 mg Tablet PO SCH (20:54)
[2018-10-14] MEDS: Finasteride 5 MG TAB PO SCH (20:55)
[2018-10-14] MEDS: Melatonin 3 MG TAB PO SCH (20:57)
[2018-10-15 06:43] LABS: Anion Gap 11 mmol/L (10-20); BUN (Urea Nitrogen) 10 mg/dL (8.4-25.7); Calc. Creatinine Clearance 140 mL/min (70-130); Carbon Dioxide 27 mmol/L (23-31); Chloride 103 mmol/L (98-107); Estimated GFR-MDRD Greater than 90; Glucose 136 mg/dL (83-110); Potassium 3.7 mmol/L (3.5-5.1); Sodium 137 mmol/L (136-145)
[2018-10-15] MEDS: Cefepime 2 GM in Sodium Chloride 0.9% 100 ML IVPB SCH (08:44)
[2018-10-15] MEDS: Venlafaxine HCl XR 150 MG CAP PO SCH (08:45)
[2018-10-15] MEDS: Tamsulosin HCl 0.4 MG CAP PO SCH ×2 (08:46→21:15)
[2018-10-15] MEDS: Atorvastatin Calcium 40 MG TAB PO SCH (08:47)
[2018-10-15] MEDS: Carbidopa/Levodopa CR 50-200 mg Tablet PO SCH ×3 (08:47→21:13)
[2018-10-15] MEDS: Carbidopa/Levodopa 25-250 mg Tablet PO SCH ×3 (08:48→21:13)
[2018-10-15] MEDS: Enoxaparin Sodium 40 MG/0.4 ML SYRINGE SC SCH (08:49)
[2018-10-15] MEDS: Divalproex Sodium 125 mg Sprinkle Capsule PO SCH ×2 (08:52→21:14)
[2018-10-15] MEDS: Polyethylene Glycol 3350 17 GM Packet PO SCH (09:02)
--- NOTE | 2018-10-15 11:15 | PDOC.PN ---
- Subjective Encounter Start Date: 10/15/18 Encounter Start Time: 14:10 Subjective: Patient sleeping currently, non-verbal. No changes overnight. - Objective Resuscitation Status - Order Detail: 10/06/18 12:54 Resuscitation Status Routine Resuscitation Status: FULL: Full Resuscitation MAR Reviewed: Yes Vital Signs & Weight: Vital Signs (12 hours) Temp Pulse Resp BP Pulse Ox 10/15/18 10:10 85 16 98 10/15/18 08:47 99.0 F 98 20 162/75 H 97 10/15/18 08:00 97 10/15/18 07:20 92 98 10/15/18 03:42 99.0 F 79 18 96 10/14/18 23:41 98.5 F 75 16 99 Weight Admit Weight 169 lb 12.095 oz Weight 169 lb 12.095 oz I&O: 10/14/18 10/15/18 10/16/18 06:59 06:59 06:59 Intake Total 3190 4059 Output Total 241 Balance 2949 4059 Result Diagrams: 10/14/18 05:42 10/15/18 05:51 Phys Exam - Physical Examination Constitutional: NAD HEENT: moist MMs Respiratory: no wheezing, no rales, no rhonchi Cardiovascular: RRR, no significant murmur Gastrointestinal: soft, positive bowel sounds abdominal binder over PEG in place Deviation from normal: sleeping, not currently responsive Dx/Plan (1) Aspiration pneumonia Code(s): J69.0 - PNEUMONITIS DUE TO INHALATION OF FOOD AND VOMIT Status: Acute Qualifiers: Laterality: left Comment: deescalating antibiotics, switch to Augmentin via tube today (2) Sepsis Code(s): A41.9 - SEPSIS, UNSPECIFIED ORGANISM Status: Acute Qualifiers: Sepsis type: sepsis due to unspecified organism Qualified Code(s): A41.9 - Sepsis, unspecified organism Comment: improving (3) Parkinsons disease Code(s): G20 - PARKINSON'S DISEASE Status: Chronic Comment: declining over the past year, no other treatment options per neurology, non-verbal now and only intermittently responsive and following commands (4) Hypokalemia Code(s): E87.6 - HYPOKALEMIA Status: Resolved Comment: improved (5) Anemia Code(s): D64.9 - ANEMIA, UNSPECIFIED Status: Acute Qualifiers: Anemia type: unspecified type Qualified Code(s): D64.9 - Anemia, unspecified Comment: mild, stable - Plan cont current plan of care, continue antibiotics, PT/OT likely to swing bed tomorrow * . - Discharge Day Encounter end time: 14:20
--- NOTE | 2018-10-15 15:22 | PQF ---
DATE: 10-15-18 ATTN: DR. ZULLY MONTES Please exercise your independent, professional judgment in responding to the clarification form. Clinical indicators are provided on the bottom of this form for your review Please check appropriate box(s): [ X ] Encephalopathy: Type: [ ] Acute [ X ] Subacute [ ] Chronic Etiology: [ X ] Metabolic [ ] Toxic [ ] Hypoxic [ ] Septic [ ] Other (please specify) [ ] Transient Alteration of Awareness [ X ] Other diagnosis _Progressive Parkinson's [ ] Unable to determine In addition, please specify: Present on Admission (POA): [ X ] Yes [ ] No [ ] Unable to determine For continuity of documentation, please document condition throughout progress notes and discharge summary. Thank You. CLINICAL INDICATORS - SIGNS / SYMPTOMS / LABS: PN DR. AMARJIT NETTLES 10-12-18: MORE LETHARGIC TODAY, DX: ASPIRATION PNA, SEPSIS , PARSKINSONS DISEASE PN DR. AMARJIT NETTLES 10-13-18: MENTAL STATUS NOT AT BASELINE/ENCEPHALOPATHY WHICH MAY BE PROLONGED EFFECTS OF ANESTHESIA IN A PATIENT WITH LOW COGNITIVE RESERVES VS INFECTION VS OTHER. RISK FACTORS: PN DR. AMARJIT NETTLES 10-12-18: MORE LETHARGIC TODAY, DX: ASPIRATION PNA , SEPSIS, PARSKINSONS DISEASE PN DR. AMARJIT NETTLES 10-13-18: MENTAL STATUS NOT AT BASELINE/ ENCEPHALOPATHY WHICH MAY BE PROLONGED EFFECTS OF ANESTHESIA IN A PATIENT WITH LOW COGNITIVE RESERVES VS INFECTION VS OTHER TREATMENTS: PN DR. AMARJIT NETTLES 10-13-18: HOLD ON ADDERALL FOR NOW. PN DR. AMARJIT NETTLES 10-14-18: NEURO CONSULT, CONTINUE EFFEXOR (This form is maintained as a part of the permanent medical record) 2014 [employer], [employer] All Rights Reserved [email or web address] Office: [phone] [facility]
--- NOTE | 2018-10-15 15:33 | PQF ---
DATE: 10-15-18 ATTN: DR. ZULLY MONTES Please exercise your independent, professional judgment in responding to the clarification form. Clinical indicators are provided on the bottom of this form for your review Please check appropriate box(s): [ X ] Acute Respiratory Failure: [ X ] with Hypoxia[ ] with Hypercapnia [ ] Acute Respiratory Failure due to: (etiology) [ ] Other diagnosis [ ] Unable to determine In addition, please specify: Present on Admission (POA): [ X ] Yes [ ] No [ ] Unable to determine For continuity of documentation, please document condition throughout progress notes and discharge summary. Thank You. CLINICAL INDICATORS - SIGNS / SYMPTOMS / LABS NURSE NOTE: 408: Pt coughing a lot, SP02 dropped to high 80's, called RT placed on venti mask. Vital signs: 10/11, 1140 on RA, 10/11, 1927 on 2L NC, [address] AMARJIT NETTLES 10-12-18: PT NOTED TO BE HYPOXIC OVERNIGHT AND CHANGED TO FACEMASK RT ASSESSMENT: 10-12-18: 12L VM RISK FACTORS: PN DR AMARJIT NETTLES 10-12-18: Aspiration Pneumonia, Sepsis TREATMENTS: MAR: 10-12-18: DUONEBS, AUGMENTIN PER TUBE, 10-12-18: MAXIPIME IV (This form is maintained as a part of the permanent medical record) 2014 [employer], [employer]. All Rights Reserved [email or web address] [email or web address] Office: [phone] [facility]
[2018-10-15] MEDS: risperiDONE 1 MG TAB PO SCH (21:11)
[2018-10-15] MEDS: Amoxicillin/Potassium Clav 600 mg/5 ml Oral Suspension PER TUBE SCH (21:13)
[2018-10-15] MEDS: Desmopressin 0.2 mg Tablet PO SCH (21:14)
[2018-10-15] MEDS: Finasteride 5 MG TAB PO SCH (21:15)
[2018-10-15] MEDS: Melatonin 3 MG TAB PO SCH (21:15)
[2018-10-16 06:36] LABS: #Basophils 0.1 thou/uL (0.0-0.2); #Eosinphils 0.1 thou/uL (0.0-0.7); #Lymphocytes 0.6 thou/uL (1.20-3.40); #Monocytes 0.6 thou/uL (0.11-0.59); #Neutrophils 10.4 thou/uL (1.40-6.50); %Basophils 0.7 % (0.0-1.0); %Eosinophils 0.7 % (0.0-10.0); %Lymphocytes 5.2 % (21.0-51.0); %Neutrophils 88.4 % (42.0-75.0); Mean Corpuscular HGB CONC 33.5 g/dL (32.0-36.0); Mean Corpuscular Volume 98.4 fL (78.0-98.0); Platelet Count 320 thou/uL (130-400); RBC Distribution Width 11.9 % (11.5-14.5); Red Blood Cell (RBC) Count 3.93 mill/uL (4.70-6.10); White Blood Cell (WBC) Count 11.8 thou/uL (4.8-10.8)
[2018-10-16 06:55] LABS: Anion Gap 14 mmol/L (10-20); BUN (Urea Nitrogen) 12 mg/dL (8.4-25.7); Calc. Creatinine Clearance 137 mL/min (70-130); Calcium 9.4 mg/dL (7.8-10.44); Carbon Dioxide 25 mmol/L (23-31); Chloride 100 mmol/L (98-107); Estimated GFR-MDRD Greater than 90; Glucose 138 mg/dL (83-110); Potassium 3.9 mmol/L (3.5-5.1); Sodium 135 mmol/L (136-145)
--- NOTE | 2018-10-16 08:16 | PDOC.PN ---
- Subjective Encounter Start Date: 10/16/18 Encounter Start Time: 09:40 Subjective: Patient unchanged. A little tachycardic this AM, but has been running -: mildly high entire hospitalization. No fever. Woke up for me and denied -: complaints. - Objective Resuscitation Status - Order Detail: 10/06/18 12:54 Resuscitation Status Routine Resuscitation Status: FULL: Full Resuscitation MAR Reviewed: Yes Vital Signs & Weight: Vital Signs (12 hours) Temp Pulse Resp BP Pulse Ox 10/16/18 07:27 97.5 F L 113 H 16 129/72 95 10/16/18 06:20 114 H 16 92 L Weight Admit Weight 169 lb 12.095 oz Weight 169 lb 12.095 oz I&O: 10/15/18 10/16/18 10/17/18 06:59 06:59 06:59 Intake Total 4059 1850 Balance 4059 1850 Result Diagrams: 10/16/18 05:37 10/16/18 05:37 Phys Exam - Physical Examination Constitutional: NAD HEENT: moist MMs Respiratory: no wheezing, no rales, no rhonchi Cardiovascular: RRR Gastrointestinal: soft, positive bowel sounds Neurological: non-focal Deviation from normal: sleeping, arousable, not oriented Dx/Plan (1) Aspiration pneumonia Code(s): J69.0 - PNEUMONITIS DUE TO INHALATION OF FOOD AND VOMIT Status: Acute Qualifiers: Laterality: left Comment: deescalating antibiotics, switched to Augmentin via tube (2) Sepsis Code(s): A41.9 - SEPSIS, UNSPECIFIED ORGANISM Status: Acute Qualifiers: Sepsis type: sepsis due to unspecified organism Qualified Code(s): A41.9 - Sepsis, unspecified organism Comment: improving, tachycardic again this AM but no fever and WBC stable (3) Parkinsons disease Code(s): G20 - PARKINSON'S DISEASE Status: Chronic Comment: declining over the past year, no other treatment options per neurology, non-verbal now and only intermittently responsive and following commands (4) Hypokalemia Code(s): E87.6 - HYPOKALEMIA Status: Resolved Comment: improved (5) Anemia Code(s): D64.9 - ANEMIA, UNSPECIFIED Status: Acute Qualifiers: Anemia type: unspecified type Qualified Code(s): D64.9 - Anemia, unspecified Comment: mild, stable (6) Tachycardia Code(s): R00.0 - TACHYCARDIA, UNSPECIFIED Status: Acute Comment: has been in 90s throughout admission, now in low 100s, on DVT prophylaxis, no evidence of worsening leukocytosis, fever, or other condition - Plan cont current plan of care, continue antibiotics, DVT proph w/lovenox stable for discharge to swing bed * . - Discharge Day Encounter end time: 09:50
[2018-10-16] MEDS: Amoxicillin/Potassium Clav 600 mg/5 ml Oral Suspension PER TUBE SCH (08:49)
[2018-10-16] MEDS: Carbidopa/Levodopa 25-250 mg Tablet PO SCH ×2 (08:51→16:38)
[2018-10-16] MEDS: Carbidopa/Levodopa CR 50-200 mg Tablet PO SCH ×2 (08:51→16:38)
[2018-10-16] MEDS: Acetaminophen 325 MG TAB PO PRN (08:52)
[2018-10-16] MEDS: Venlafaxine HCl XR 150 MG CAP PO SCH (08:52)
[2018-10-16] MEDS: Atorvastatin Calcium 40 MG TAB PO SCH (08:52)
[2018-10-16] MEDS: Tamsulosin HCl 0.4 MG CAP PO SCH (08:53)
[2018-10-16] MEDS: Divalproex Sodium 125 mg Sprinkle Capsule PO SCH (08:53)
[2018-10-16] MEDS: Polyethylene Glycol 3350 17 GM Packet PO SCH (10:04)
[2018-10-16 11:28] VITALS: BP 111/62; TEMP 99
[2018-10-16] MEDS: Enoxaparin Sodium 40 MG/0.4 ML SYRINGE SC SCH (15:50)
--- NOTE | 2018-10-17 04:33 | DIS ---
DATE OF ADMISSION: 10/06/2018 DATE OF DISCHARGE: 10/16/2018 PRIMARY CARE PHYSICIAN: Jeremy Ren MD REASON FOR ADMISSION: Sepsis. DIAGNOSES AT DISCHARGE: 1. Aspiration pneumonia. 2. Sepsis. 3. Parkinson disease, progressive. 4. Tachycardia. 5. Anemia. PROCEDURES: CT of the chest, abdomen and pelvis with contrast showing chronic lung changes, ground-glass opacities, more prominent in the posterior right lung base. Findings may represent infectious alveolitis. No confluent consolidation and no acute abdominal process. CONSULTATIONS: 1. Gastroenterology, Dr. Meek. 2. Neurology, Dr. Jiménez. SUMMARY OF HOSPITAL COURSE: This is a 73-year-old white male with a history of progressive parkinsonism, followed by Dr. Kellogg as an outpatient. The patient came into the hospital emergency room because he was very weak, not able to do his routine, found to be septic with tachycardia, fever. He was given antibiotics, IV fluids, transferred to our hospital. CT scan as above. The patient was admitted for likely aspiration pneumonia. He had a swallowing evaluation and eventually GI consultation for PEG tube placement. The patient had poor alertness and mental status during his hospitalization. Dr. Jiménez was consulted and determined this was due to his progressive parkinsonism. His medications were already maximized and there was no other treatment for this. The patient had some mild improvement during hospitalization. He had eventual resolution of his fevers and was successfully transferred over to oral antibiotics for his pneumonia. The patient did have some persistent mild tachycardia in the 90s to 110s during his hospitalization but no evidence of other infection, persistent sepsis, or blood clots. The patient was eventually discharged to a swing bed in [place] given his progressive decline, likely that he will need to transition to long-term care facility or even hospice eventually. DISCHARGE MANAGEMENT: Discharged to swing bed at [facility]. ACTIVITY: As tolerated. DIET: Tube feeding diet. THERAPY: Occupational, Physical, and Speech Therapy. EQUIPMENT: PEG tube care. FOLLOWUP: Follow up with Dr. Ren in 1 week. DISCHARGE MEDICATIONS: 1. Augmentin 875 mg twice a day for 10 more days. 2. Atorvastatin 40 mg daily. 3. Sinemet 25/250 mg one tablet 3 times a day. 4. Sinemet CR 50/200 mg tablet, one tablet 3 times a day. 5. Desmopressin 0.2 mg 3 tablets at night. 6. Depakote Sprinkles 125 mg twice a day. 7. Finasteride 5 mg at night. 8. Melatonin 10 mg at night. 9. Risperidone 4 mg at night. 10. Tamsulosin 0.4 mg twice a day. 11. Venlafaxine 150 mg daily. 12. Adderall 20 mg daily. 13. Polyethylene glycol 17 g twice a day. 14. Potassium chloride 20 mEq twice a day. 15. Verapamil ER 180 mg daily. Arranging the details of this discharge took 35 minutes. Job ID: [id number]
== END 2018-10-16 16:49 | disposition swing bed (61) | DRG 871 ==
LOC: T4-A 09:57
PROVIDERS: ADMIT Family Medicine; ATTEND Family Medicine
PROC: 0DH63UZ Insertion of Feeding Device into Stomach, Percutaneous Approach (ICD-10-PCS; principal; 2018-10-11)
DX: A41.9 Sepsis, unspecified organism (principal); G93.41 Metabolic encephalopathy; J69.0 Pneumonitis due to inhalation of food and vomit; J96.01 Acute respiratory failure with hypoxia; G20 Parkinson's disease; E78.5 Hyperlipidemia, unspecified; R31.9 Hematuria, unspecified; R13.12 Dysphagia, oropharyngeal phase; D64.9 Anemia, unspecified; E87.6 Hypokalemia; Z79.899 Other long term (current) drug therapy
CPT/HCPCS: 36415; 71045; 71260; 74177; 80048; 80053; 80202; 81001; 83735; 84145; 85025; 87040; 87086; 94640; J0692; J1650; J2543; J2704; J3370; J3490; J7050; J7620; Q9966